=== PATIENT | female | born 1960 | race Caucasian/White ===

== ENCOUNTER 2017-10-07 08:47 | Outpatient (CLI) | payer MEDICARE, OTHER ==
[2016-09-16 23:07] VITALS: BP 118/68
[2017-10-07] MEDS ORDERED: ALBUTEROL SULFATE 2.5 MG/3 ML AMPUL.NEB NEB ONE (09:00)
== END 2017-10-07 08:50 ==
LOC: RT 08:47
PROVIDERS: ATTEND Family Medicine
DX: J44.9 Chronic obstructive pulmonary disease, unspecified (principal)
CPT/HCPCS: 94060

== ENCOUNTER 2017-11-17 15:28 | Emergency (ER) | payer MEDICARE, OTHER ==
--- NOTE | 2017-11-17 15:39 | ED Physician Documentation ---
General Adult - HISTORIAN Historian: patient - HPI Stated Complaint: chronic neck pain Chief Complaint: Neck Pain Onset: other (years ) Timing: still present, pain intermittent Severity: moderate Further Comments: yes (She states she has a pain management appt on 11/26/17. She did take her hydrocodone this am but feels she might be "getting immunue" to the med. She has pain on the right lateral side that is "like a muscle cramp " denies any new injury She has no other complaints) Last known Well Code/Unknown Code: Unknown - ROS CONST: no problems EYES/ENT: none MS/SKIN/LYMPH: none NEURO/PSYCH: denies: headache - PAST HX Past History: asthma Surgeries/Procedures: none Immunizations: referred to PCP Allergies/Adverse Reactions: Allergies Allergy/AdvReac Type Severity Reaction Status Date / Time No Known Allergies Allergy Verified 07/18/16 08:27 - SOCIAL HX Smoking History: cigarettes Alcohol Use: none Drug Use: none - FAMILY HX Family History: No - VITAL SIGNS Vital Signs: Vital Signs Temp Pulse Resp BP Pulse Ox 118/68 09/16/16 23:05 - REVIEWED ASSESSMENTS Nursing Assessment Reviewed: Yes Vitals Reviewed: Yes General Adult Physical Exam - PHYSICAL EXAM GENERAL APPEARANCE: mild distress EENT: eye inspection normal CVS: reg rate & rhythm, heart sounds normal, equal pulses ABDOMEN: soft SKIN: warm/dry, normal color EXTREMITIES: non-tender, other (tenderness on right lateral side. No obvious abnormalities. ROM is normal she complains of pain with left lateral rotation. ) NEURO: oriented X3, CN's nml as tested, motor nml, sensation nml, mood/affect nml Discharge Clincal Impression: Neck pain Referrals: Yousuf Louie MD [Primary Care Provider] - 2 Days Comments: Ice/heat continue pain meds at home for pain Cyclobenzaprine for pain as prescribed Call Pain management in am Condition: Stable Disposition: HOME, SELF-CARE Decision to Admit: NO Date of Decison to Admit: 11/17/17 Decision Time: 15:45
[2017-11-17 15:48] VITALS: BP 116/73
== END 2017-11-17 15:50 | disposition home or self-care (01) ==
LOC: ED 15:28
DX: M54.2 Cervicalgia (principal)
CPT/HCPCS: 99282

== ENCOUNTER 2017-12-19 12:00 | Emergency (ER) | payer MEDICARE, OTHER ==
--- NOTE | 2017-12-19 12:43 | ED Physician Documentation ---
Upper Respiratory Symptoms - HISTORIAN Historian: patient - HPI Stated Complaint: cough/fever Chief Complaint: Cough/ Upper Respiratory Additional Information: started 2 days ago, sore throat, more than normal cough, non-productive, slight fever, not eating, not smoking. Dr Louie is taking nyquil Onset: days ago Duration: constant Context: denies: recent foreign travel, insect bite(s) Severity: mild Associated Symptoms: fever, chills, sore throat Worsened by Deep Breath: No Further Comments: no - ROS CONST/EYES: denies: weakness CVS/RESP: none LYMPH: denies: leg swelling GI/: none, diarrhea NEURO/PSYCH: denies: fainting, dizziness MS/SKIN: denies: joint pain, muscle aches - PAST HX Lung Disease: COPD PE Risk Factors: none Surgeries/Procedures: hysterectomy Allergies/Adverse Reactions: Allergies Allergy/AdvReac Type Severity Reaction Status Date / Time No Known Allergies Allergy Verified 12/19/17 12:18 - SOCIAL HX Smoking History: cigarettes, greater than 1 pack/day Alcohol Use: none Drug Use: none - FAMILY HX Family History: none - VITAL SIGNS Vital Signs: Vital Signs Temp Pulse Resp BP Pulse Ox 99 F 114 H 18 150/96 96 12/19/17 12:05 12/19/17 12:05 12/19/17 12:05 12/19/17 12:05 12/19/17 12:05 - REVIEWED ASSESSMENTS Nursing Assessment Reviewed: Yes Vitals Reviewed: Yes Progress - Results/Orders Results/Orders: spoke Dr Villareal, [facility] accepts transfer, orders recieved ED Results Lab/Radiology - Lab Results Lab Results: Lab Results 12/19/17 12/19/17 12/19/17 13:35 13:35 13:35 WBC RBC Hgb Hct MCV MCH MCHC RDW Plt Count Seg Neutrophils % Band Neutrophils % Lymphocytes % Monocytes % Plt Morphology Comment Macrocytosis RBC Morph Comment PT 11.2 Seconds Seconds (9.4-11.6) INR 1.07 (0.9-1.2) APTT 26.5 Seconds Seconds (24.5-32.8) Sodium 141 mmol/L mmol/L (136-145) Potassium 3.4 mmol/L L mmol/L (3.5-5.1) Chloride 97 mmol/L L mmol/L (98-107) Carbon Dioxide 28 mmol/L mmol/L (22-30) BUN 18 mg/dL H mg/dL (7-17) Creatinine 0.90 mg/dL mg/dL (0.52-1.04) Estimated Creat Clear 56 Est GFR ( Amer) > 60 (60 - ) Est GFR (Non-Af Amer) > 60 (60 - ) Glucose 101 mg/dL mg/dL (74-106) Calcium 9.5 mg/dL mg/dL (8.4-10.2) Total Bilirubin 0.7 mg/dL mg/dL (0.2-1.3) AST 68 U/L H U/L (15-46) ALT 36 U/L U/L (13-69) Alkaline Phosphatase 109 U/L U/L (38-126) Creatine Kinase 165 U/L H U/L (30-135) Troponin I < 0.03 ng/mL L ng/mL (0.03-0.06) Total Protein 7.1 g/dL g/dL (6.3-8.2) Albumin 4.1 g/dL g/dL (3.5-5.0) 12/19/17 13:35 WBC 19.20 K/ul H K/ul (4.00-12.00) RBC 4.16 M/ul M/ul (3.90-5.20) Hgb 14.0 g/dL g/dL (12.0-16.0) Hct 42.1 % % (34.5-46.5) MCV 101.0 fl H fl (80.0-100.0) MCH 33.7 pg pg (28.0-34.0) MCHC 33.4 g/dL g/dL (30.0-36.0) RDW 12.8 % % (11.3-14.3) Plt Count 256 K/mm3 K/mm3 (130-400) Seg Neutrophils % 76 % % (39-79) Band Neutrophils % 8 % % (0-12) Lymphocytes % 9 % L % (16-50) Monocytes % 7 % % (0-11) Plt Morphology Comment Normal (NORMAL) Macrocytosis 1+ H (NEGATIVE) RBC Morph Comment Abnormal H (NORMAL) PT INR APTT Sodium Potassium Chloride Carbon Dioxide BUN Creatinine Estimated Creat Clear Est GFR ( Amer) Est GFR (Non-Af Amer) Glucose Calcium Total Bilirubin AST ALT Alkaline Phosphatase Creatine Kinase Troponin I Total Protein Albumin - Radiology Radiology Impressions: Right LL pleural effusion - Orders Orders: ED Orders Category Date Time Status CHEST 2 VIEW [CHEST P.A.&LAT 2 VIEWS] [RAD] Stat Exams 12/19/17 Completed CBC/PLATELET/DIFF Routine Lab 12/19/17 13:35 Completed CMP Routine Lab 12/19/17 13:35 Completed CREATINE KINASE Routine Lab 12/19/17 13:35 Completed PT-INR Routine Lab 12/19/17 13:35 Completed PTT Routine Lab 12/19/17 13:35 Completed Rapid Strep [GRP A STREP SCREEN] Stat Lab 12/19/17 Ordered TROPONIN I (cTnI) Stat Lab 12/19/17 13:35 Completed EKG WITH COMPARISON Stat Ther 12/19/17 Ordered Upper Respiratory Symptoms - EXAM General Appearance: no acute distress, alert EENT: eyes nml inspection, nml ENT inspection, lids & conjunct. nml, nose nml, pharyngeal erythema (mild). No: rhinorrhea Neck: normal inspection, thyroid normal, supple. No: lymphadenopathy, stiff neck Respiratory: no resp. distress, breath sounds nml, no pain on inspiration, speaks full sentences. No: wheezes, rales, rhonchi Abdomen: non-tender CVS: reg rate & rhythm, heart sounds normal, equal pulses Skin: color nml, no rash Extremities: non-tender, normal range of motion, no evidence of injury, no edema Neuro/Psych: oriented x3, neuro intact, mood/affect nml Discharge Clincal Impression: COPD exacerbation, Elevated creatine kinase Pneumonia Qualifiers: Pneumonia type: due to unspecified organism Laterality: right Lung location: lower lobe of lung Qualified Code(s): J18.1 - Lobar pneumonia, unspecified organism Referrals: Yousuf Louie MD [Primary Care Provider] - 2 Days Condition: Stable Disposition: XFER SHT-TRM HOSP Decision to Admit: NO Date of Decison to Admit: 12/19/17 Decision Time: 15:14
--- NOTE | 2017-12-19 13:45 | Diagnostic Imaging Report ---
FERNANDA JOSUE [facility] [address] [facility] [address] [address] Report Submission Date: Dec 19, 2017 1:23:35 PM COLLECTION COORDINATOR Patient Study Name: MELISSA LOZOYA Date: Dec 19, 2017 1:05:29 PM COLLECTION COORDINATOR Modality Type: CR Gender: F Description: CHEST : 62 Institution: [facility] Physician: FERNANDA JOSUE 2 views of the chest History: COUGH, WEAKNESS X2 DAYS, COPD, HX OF SMOKING SINCE AGE 13 No comparison studies are available at the time of dictation Heart is normal in size. There is opacity at the right lung base which obscures the right hemidiaphragm, right costophrenic angle is blunted. No acute osseous pathology Impression: 1. Right basilar infiltrate/atelectasis with small right pleural effusion. Suggest followup to resolution Electronically signed on Dec 19, 2017 1:23:35 PM COLLECTION COORDINATOR by: Geovanna KIRAN
[2017-12-19 13:52] LABS: MEAN CORPUSCULAR HEMOGLOBIN 33.7 pg (28.0-34.0)
[2017-12-19 14:03] LABS: eGFR (African) > 60; eGFR (Non-African) > 60
[2017-12-19 14:25] LABS: MONOCYTES % 7 % (0-11); SEGMENTED NEUTROPHILS % 76 % (39-79)
[2017-12-19] MEDS ORDERED: PIPERACILLIN SODIUM/TAZOBACTAM 3.375 GM VIAL IV ONE (15:15)
[2017-12-19] MEDS: PIPERACILLIN SODIUM/TAZOBACTAM 3.375 GM VIAL IV SCH (15:26)
[2017-12-19] MEDS: VANCOMYCIN HCL 1 GM in 0.9 % SODIUM CHLORIDE 500 ML IV ONE (15:42)
[2017-12-19 16:09] VITALS: BP 123/90
== END 2017-12-19 16:07 | disposition short-term general hospital (02) ==
LOC: ED 12:00
DX: J44.1 Chronic obstructive pulmonary disease with (acute) exacerbation (principal); J18.1 Lobar pneumonia, unspecified organism; F17.210 Nicotine dependence, cigarettes, uncomplicated
CPT/HCPCS: 36415; 71020; 80053; 82550; 84484; 85025; 85610; 85730; 87040; 87070; 87880; 93005; J2543; J3370; J7060; 96365; 96366; 96375; 99284; S1016

== ENCOUNTER 2018-09-11 08:28 | Emergency (ER) | payer MEDICARE, OTHER ==
[2018-09-11] MEDS ORDERED: 0.9 % SODIUM CHLORIDE 1,000 ML IV ONE (09:05)
--- NOTE | 2018-09-11 09:09 | ED Physician Documentation ---
General Adult - HISTORIAN Historian: patient - HPI Stated Complaint: cough, GARNICA, neck pain, elbow pain Chief Complaint: Cough/ Upper Respiratory Additional Information: Intro self as [employer]. pt presents to the ED via POV with multiple complaints. Pt c/o productive cough x several days. pt is a heavy smoker with a Hx of COPD. Pt also complains of moderate neck pain and a headache. she reports chills, nausea. pt takes Hydrocodone and xanax for her anxiety and chronic neck pain. pt states she has these meds at home. pt denies current chest pain, dyspnea, syncope/near syncope, dizziness, visual disturbances, v/d, fever, rash, sick contacts, dysuria, trauma. melena or hematochezia, change in bowel or bladder function. pt reports depression and anxiety that are controlled. pt denies HI/SI. ROS Negative unless otherwise specified. Vitals reviewed. pt mildly tachycardic. Timing: worse Severity: moderate - ROS CONST: chills. denies: fever CVS/RESP: cough. denies: chest pain, shortness of breath MS/SKIN/LYMPH: none NEURO/PSYCH: headache - PAST HX Past History: COPD, other (MDD, anxiety, chronic neck pain, osteoporosis, ) Surgeries/Procedures: , hysterectomy Allergies/Adverse Reactions: Allergies Allergy/AdvReac Type Severity Reaction Status Date / Time azithromycin Allergy Intermediate Itching Verified 09/11/18 08:43 - SOCIAL HX Smoking History: greater than 1 pack/day Alcohol Use: none Drug Use: none - FAMILY HX Family History: Yes (HTN Cancer) - VITAL SIGNS Vital Signs: Vital Signs Temp Pulse Resp BP Pulse Ox 98.0 F 116 H 16 118/96 94 09/11/18 08:43 09/11/18 08:43 09/11/18 08:43 09/11/18 08:43 09/11/18 08:43 - REVIEWED ASSESSMENTS Nursing Assessment Reviewed: Yes Vitals Reviewed: Yes Progress - Progress Progress: 1020 pt reports improvement in symptoms and VSS. Verbalizes readiness for DC. ED Results Lab/Radiology - Radiology Radiology Impressions: Examination: PA and lateral chest. History: Evaluate lung gallardo. COUGH AND CHEST PAIN X2 DAYS, PT STATES SHE IS A SMOKER (Hx) Comparison exam: None provided. Findings: PA and lateral views of the chest demonstrates a normal cardiac and mediastinal silhouette. Right base blunting. Mild parenchymal haziness near the cardiac apex. Osseous structures are appropriate for age. Impression: Right base infiltrate/effusion. Possible mild infiltrate near the left base/cardiac apex. Electronically signed on Sep 11, 2018 9:34:37 AM CDT by: Dash Mobley General Adult Physical Exam - PHYSICAL EXAM GENERAL APPEARANCE: no distress EENT: eye inspection normal, ENT inspection normal, pharynx normal, no signs of dehydration, TM's nml NECK: normal inspection. No: lymphadenopathy RESPIRATORY: no resp distress, rhonchi CVS: reg rate & rhythm, heart sounds normal, equal pulses, no murmur, no gallop, tachycardia ABDOMEN: soft, no organomegaly, normal bowel sounds, no distension. No: tenderness BACK: normal inspection SKIN: warm/dry, normal color EXTREMITIES: non-tender, normal range of motion, no evidence of injury, no edema NEURO: oriented X3, CN's nml as tested, motor nml, sensation nml Discharge Clincal Impression: Community acquired pneumonia Qualifiers: Laterality: unspecified laterality Qualified Code(s): J18.9 - Pneumonia, unspecified organism Referrals: Yousuf Beard MD [Primary Care Provider] - 2 Days Additional Instructions: Doxycycline 100 mg twice a day for 10 days. Take with food Prednisone taper take per package instructions once daily. Rest Increase hydration follow up with dr beard next fri or . call [facility] for an appointment. Return or seek medical care if worsening symptoms: CHEST PAIN, SHORTNESS OF BREATH, UNCONTROLLABLE FEVER, DIZZINESS, CHANGE IN MENTAL STATUS OR ANY CONCERN. -UNDERSTAND THAT THIS IS AN EMERGENCY EVALUATION FOR YOUR COMPLAINT TODAY AND BY NATURE IS LIMITED AND NOT A SUBSTITUTE FOR ONGOING MEDICAL CARE AND THAT EVEN THOUGH TEST RESULTS AND TREATMENT PLAN WERE EXPLAINED THERE MAY BE A NEED FOR ADDITIONAL TESTING TO FULLY DETERMINE THE EXTENT OF YOUR ILLNESS/INJURY/OR CONCERN SO YOU SHOULD CONTACT AND OR ESTABLISH WITH A PRIMARY CARE PROVIDER (OR REFERRAL DOCTOR IF APPLICABLE) FOR AN APPOINTMENT SOON POSSIBLE. Condition: Good Disposition: 01 HOME, SELF-CARE Decision to Admit: NO Date of Decison to Admit: 09/11/18 Decision Time: 10:19
[2018-09-11] MEDS ORDERED: KETOROLAC TROMETHAMINE 30 MG/1ML VIAL IVP ONE (09:15)
[2018-09-11 09:30] LABS: MEAN CORPUSCULAR HEMOGLOBIN 34.3 pg (28.0-34.0)
[2018-09-11 09:42] LABS: eGFR (Non-African) > 60
[2018-09-11] MEDS ORDERED: cefTRIAXone SODIUM 1 GM VIAL ONE (10:08)
[2018-09-11] MEDS: cefTRIAXone SODIUM 1 GM in 0.9 % SODIUM CHLORIDE 50 ML IV ONE ×2 (10:10→10:30)
[2018-09-11 10:44] VITALS: BP 122/82
--- NOTE | 2018-09-11 14:58 | Diagnostic Imaging Report ---
LIZ STUBBS [facility] [address] [facility] [address] Report Submission Date: Sep 11, 2018 9:34:37 AM CDT Patient Study Name: MELISSA LOZOYA Date: Sep 11, 2018 9:09:04 AM CDT Modality Type: DX Gender: F Description: CHEST : 62 Institution: [facility] Physician: LIZ STUBBS Examination: PA and lateral chest. History: Evaluate lung gallardo. COUGH AND CHEST PAIN X2 DAYS, PT STATES SHE IS A SMOKER (Hx) Comparison exam: None provided. Findings: PA and lateral views of the chest demonstrates a normal cardiac and mediastinal silhouette. Right base blunting. Mild parenchymal haziness near the cardiac apex. Osseous structures are appropriate for age. Impression: Right base infiltrate/effusion. Possible mild infiltrate near the left base/cardiac apex. Electronically signed on Sep 11, 2018 9:34:37 AM CDT by: Dash KIRAN
== END 2018-09-11 10:30 | disposition home or self-care (01) ==
LOC: ED 08:28
DX: J18.9 Pneumonia, unspecified organism (principal)
CPT/HCPCS: 71046; 80053; 85027; 87400; J0696; J1885; J7030; 96365; 96368; 99284; S1016

== ENCOUNTER 2018-09-18 11:44 | Inpatient (IN) | payer MEDICARE ==
--- NOTE | 2018-09-18 12:59 | History and Physical Report ---
History of Present Illnes - History of Present Illness Reason for Visit: Left lower lobe pneumonia History of Present Illness: This is a 57 year old female who was seen in the clinic today for continued shortness of breath, wheezing and weakness. She was seen in the ER on the and was noted to have a LLL pneumonia with a question of a RLLL also. She was treated with doxycycline and prednisone and nebulizer treatments as an outpatient, but despite this she has continued to be weak, chilling and coughing. She continues to smoke, but thinks she may have cut down a little. - Past Medical History Pulmonary: COPD Psych: Depression Musculoskeletal: Other (DJD, cervical spine) - Past Surgical History Past Surgical History: Hysterectomy, Hernia Repair (Umbilical) - Past Social History Smoke: 2 packs per day Alcohol: None Drugs: None Lives: With Family Domestic Violence: Negative - Health Maintenance Health Maintenance: denies: Cholesterol Influenza Vaccine: Current for this Influenza Season Pneumonia Vaccine: Yes Resuscitation Status: Resusciation Status Resuscitation Status Full Code - Unable to Obtain History Unable to Obtain: No Review of Systems - Review of Systems Constitutional: Chills, Sweats, Weakness, Malaise. negative: Fever Eyes: negative: pain ENT: negative: Ear Pain, Ear Discharge Respiratory: Cough, Shortness of Breath, SOB with Excertion, Wheezing. negative: Hemoptysis Cardiovascular: negative: Chest Pain Gastrointestinal: negative: Nausea, Vomiting Genitourinary: negative: Dysuria Musculoskeletal: Neck Pain (chronic) Skin: negative: Rash, Lesions Neurological: Weakness. negative: Numbness, Change in Speech - Medications/Allergies Allergies/Adverse Reactions: Allergies Allergy/AdvReac Type Severity Reaction Status Date / Time azithromycin Allergy Intermediate Itching Verified 09/11/18 08:43 Current Inpatient Medications: Current Inpatient Medications Albuterol/Ipratropium (Duoneb) 3 ml NEB Q6 ANNA Enoxaparin Sodium (Lovenox) 30 mg SQ QD ANNA Stop: 10/01/18 13:01 LEVOFLOXACIN 500MG/D5W 100ML (500 mg/ PREMIX BAG) 100 mls @ 100 mls/hr IV DAILY ANNA Stop: 10/02/18 12:59 Exam - Exam General: Alert, Oriented to Person, Mild distress (respiratory), Thin HEENT: Atraumatic, PERRLA, Edentulous Neck: No: Stridor Lungs: Respiratory Distress, Wheezes, Rhonchi, Stridor Cardiovascular: Regular rate Murmur: No: Systolic Murmur, Diastolic Murmur Abdomen: Normal bowel sounds, Soft, No tenderness Genitourinary: No: Other Male Genitourinary: No: Other Female Genitourinary: No: Other Integumentary: Other (actinic damage) Extremities: No clubbing, No cyanosis Neurological: Normal speech, Generalized Weakness Psych/Mental Status: Other (Anxious) Assessment/Plan - Assessment/Plan (1) Community acquired pneumonia Status: Acute Current Visit: No Qualifiers: Laterality: unspecified laterality Qualified Code(s): J18.9 - Pneumonia, unspecified organism Assessment: Failed outpatient treatment Plan: HFN IV steroids IV Levofloxacin Check CXR Supplemental O2 as needed (2) Neck pain Status: Acute Current Visit: Yes Assessment: hydrocodone as needed (on this as an outpatient) (3) Depression Status: Acute Current Visit: Yes Qualifiers: Depression Type: major depressive disorder Major depression recurrence: recurrent Active/Remission status: currently active Psychotic features: wit hout psychotic features Assessment: Citalopram 20mg po qd (4) COPD exacerbation Status: Acute Current Visit: No Assessment: IV steroids, HFN VTE Assessment - RISK FACTOR SCORE VTE RISK FACTOR SCORES: AGE 40-60 YEARS, ACUTE INFECTION OTHER THEN SEPSIS (On Lovenox)
[2018-09-18 13:14] LABS: MEAN CORPUSCULAR HEMOGLOBIN 33.4 pg (28.0-34.0)
[2018-09-18 13:15] LABS: BASOPHILS % 0.6 (0.0-1.5); MONOCYTES % 6.4 % (0.0-11.0); NEUTROPHILS # 5.6 # k/uL (1.4-7.7)
[2018-09-18 13:45] LABS: eGFR (Non-African) > 60
--- NOTE | 2018-09-18 13:48 | Diagnostic Imaging Report ---
MICHAEL GAONA [facility] [address] [facility] [address] [address] Report Submission Date: Sep 18, 2018 1:46:27 PM CDT Patient Study Name: MELISSA LOZOYA Date: Sep 18, 2018 1:04:22 PM CDT Modality Type: DX Gender: F Description: CHEST : 62 Institution: [facility] Physician: MICHAEL GAONA PA and lateral chest History: Follow up pneumonia. Cough PA and lateral chest dated September 18, 2018 is compared with September 11, 2018 Heart size is normal. There is no left lung infiltrate. Only the patient's breast tissue shadow is noted on the PA radiograph at the left lung base. There is unchanged blunting of the right costophrenic angle which may represent a small right pleural effusion or mild right pleural thickening. Otherwise, the right lung is clear. The lungs are mildly hyperinflated. Impression: No left lung infiltrate. Mild hyperinflation. Unchanged mild blunting of the right costophrenic angle as described. Electronically signed on Sep 18, 2018 1:46:27 PM CDT by: Ladonna KIRAN
[2018-09-18 14:00] VITALS: BMI 16.5
[2018-09-18] MEDS: IPRATROPIUM/ALBUTEROL SULFATE 3 ML AMPUL.NEB NEB SCH ×2 (14:18→18:32)
[2018-09-18] MEDS ORDERED: LEVOFLOXACIN 500MG/D5W 100ML 100 ML IV ONE (14:57)
[2018-09-18] MEDS: HYDROcodone /APAP 5/325 1 EACH TABLET PO PRN (14:59)
[2018-09-18] MEDS: ENOXAPARIN SODIUM 30 MG/0.3 ML DISP.SYRIN SQ SCH (15:08)
[2018-09-18] MEDS: LEVOFLOXACIN 500MG/D5W 100ML 500 MG in PREMIX BAG 1 BAG IV SCH (16:19)
[2018-09-18] MEDS: ALPRAZOLAM 0.5 MG TABLET PO SCH (18:30)
[2018-09-19] MEDS: ALPRAZOLAM 0.5 MG TABLET PO SCH ×3 (00:15→12:01)
[2018-09-19] MEDS: HYDROcodone /APAP 5/325 1 EACH TABLET PO PRN (00:15)
[2018-09-19] MEDS: IPRATROPIUM/ALBUTEROL SULFATE 3 ML AMPUL.NEB NEB SCH ×3 (00:17→12:08)
[2018-09-19] MEDS ORDERED: LEVOFLOXACIN 500MG/D5W 100ML 100 ML IV ONE (08:40)
[2018-09-19] MEDS: LEVOFLOXACIN 500MG/D5W 100ML 500 MG in PREMIX BAG 1 BAG IV SCH (08:43)
[2018-09-19 11:54] VITALS: BP 120/74
[2018-09-19] MEDS: ENOXAPARIN SODIUM 30 MG/0.3 ML DISP.SYRIN SQ SCH (14:14)
--- NOTE | 2018-09-21 14:49 | Discharge Summary ---
DATE OF ADMISSION: September 18, 2018 DATE OF DISCHARGE: September 19, 2018 DIAGNOSES ON THIS HOSPITALIZATION: 1. Pneumonia. 2. Chronic obstructive pulmonary disease (COPD) exacerbation. SUMMARIZATION OF ADMISSION HISTORY AND PHYSICAL: This is a 57-year-old female who had been seen in the emergency room about a week or so before. She was noted to have a right lower lobe infiltrate and effusion. She was started on doxycycline and a steroid taper; however, she continued to worsen. She did also continue to smoke while she was at home. She returned to office with chills and increasing shortness of breath. HOSPITAL COURSE: She was admitted. I rechecked her chest x-ray. Her effusion remained, no clear infiltrate was seen however. Leukocytosis had improved and she was able to be on room air. So after an overnight stay with giving her IV steroids, as well as aggressive nebulizer treatments and starting her on oral Levaquin, she was discharged to home with continuation of all of her home medications with a steroid taper of 40 mg p.o. daily for 3 days; 30 mg p.o. daily for 3 days; 20 mg p.o. daily for 3 days; and then 10 mg p.o. daily for 3 days. Follow up with Dr. Louie next week. Levofloxacin 500 mg 1 p.o. daily x5 days and recommended smoking cessation. MAGNO
== END 2018-09-19 14:14 | disposition home or self-care (01) | DRG 192 ==
LOC: SOUTH 11:44
PROVIDERS: ADMIT Family Medicine; ATTEND Family Medicine
DX: J44.1 Chronic obstructive pulmonary disease with (acute) exacerbation (principal); R68.83 Chills (without fever); R53.1 Weakness; F32.9 Major depressive disorder, single episode, unspecified; F17.210 Nicotine dependence, cigarettes, uncomplicated
CPT/HCPCS: 36415; 71046; 80053; 85025; 87040; A9270; G0379; J1650; J1956; J2930; 96365; 96375; 99222; 99238; S1016

== ENCOUNTER 2018-09-30 13:45 | Inpatient (IN) | payer MEDICARE ==
[2018-09-30] MEDS ORDERED: IPRATROPIUM/ALBUTEROL SULFATE 3 ML AMPUL.NEB NEB STA (14:07)
[2018-09-30 14:19] LABS: BASOPHILS % 0.8 (0.0-1.5); EOSINOPHILS % 2.9 % (0.0-6.8); MEAN CORPUSCULAR HEMOGLOBIN 33.1 pg (28.0-34.0); NEUTROPHILS # 12.2 # k/uL (1.4-7.7)
[2018-09-30 14:36] LABS: eGFR (Non-African) > 60
[2018-09-30] MEDS ORDERED: 0.9 % SODIUM CHLORIDE 1,000 ML IV ONE (15:07)
[2018-09-30] MEDS ORDERED: VANCOMYCIN HCL 1 GM in 0.9 % SODIUM CHLORIDE 500 ML IV ONE (15:14)
--- NOTE | 2018-09-30 15:26 | ED Physician Documentation ---
Dyspnea - HISTORIAN Historian: patient - HPI Chief Complaint: Asthma Onset: days ago Duration: worse Initiating Event: upper respiratory illness, out of meds Further Comments: yes (57 year old female patient presents to emergency room with right lower chest wall pain; "lungs hurt", "I'm no better". Patient was seen in ER on 09/11 - discharged home with doxycycline and prednisone taper for pneumonia. Patient saw Dr Pal on 09/18 in office and was admitted with bilateral pneumonia. Discharged home 09/19/2018 with levaquin 500mg x 7 days and prednisone taper of 40mg po x 3 days, 30mg po x 3 days, 20mg po x 3 days, 10mg po x 3 days. Patient states "I did take it right". Patient does not know where her prednisone is or when her last dose was. Patient does not have electricity in her home, is heating the front room with a space heater and currently has the water shut off. Patient states she has not been eating, states her depression is worse. Denies suicidal thoughts or plan.) - ROS CONST: recent illness, weakness - PAST HX Lung Disease: COPD Other History: other (depression) Allergies/Adverse Reactions: Allergies Allergy/AdvReac Type Severity Reaction Status Date / Time azithromycin Allergy Intermediate Itching Verified 09/11/18 08:43 - SOCIAL HX Smoking History: cigarettes (2 ppd) - FAMILY HX Family History: denies: none - VITAL SIGNS Vital Signs: Vital Signs Temp Pulse Resp BP Pulse Ox 120/74 09/19/18 13:20 - REVIEWED ASSESSMENTS Nursing Assessment Reviewed: Yes Vitals Reviewed: Yes Progress - Progress Progress: [address] Louie. Patient with persistent right LL infiltrate, WBC 18.5 with Lactate 1.1. Will admit to acute status and CT chest. Will consult mental health social worker ED Results Lab/Radiology - Lab Results Lab Results: Lab Results 09/30/18 09/30/18 14:06 14:06 WBC 18.50 K/ul H K/ul (4.00-12.00) RBC 4.45 M/ul M/ul (3.90-5.20) Hgb 14.7 g/dL g/dL (12.0-16.0) Hct 44.9 % % (34.5-46.5) MCV 101.0 fl H fl (80.0-100.0) MCH 33.1 pg pg (28.0-34.0) MCHC 32.8 g/dL g/dL (30.0-36.0) RDW 11.3 % % (11.3-14.3) Plt Count 368 K/mm3 K/mm3 (130-400) Neut % (Auto) 66.0 % % (39.0-79.0) Lymph % (Auto) 25.3 % % (16.0-50.0) Fisher % (Auto) 5.0 % % (0.0-11.0) Eos % (Auto) 2.9 % % (0.0-6.8) Baso % (Auto) 0.8 (0.0-1.5) Neut # (Auto) 12.2 # k/uL H # k/uL (1.4-7.7) Lymph # (Auto) 4.7 # k/uL H # k/uL (0.6-4.0) Fisher # (Auto) 0.9 # k/uL # k/uL (0.0-0.9) Eos # (Auto) 0.5 # k/uL # k/uL (0.0-0.6) Baso # (Auto) 0.2 # k/uL # k/uL (0.0-0.5) Sodium 142 mmol/L mmol/L (136-145) Potassium 3.9 mmol/L mmol/L (3.5-5.1) Chloride 105 mmol/L mmol/L (98-107) Carbon Dioxide 29 mmol/L mmol/L (22-30) BUN 14 mg/dL mg/dL (7-17) Creatinine 0.60 mg/dL mg/dL (0.52-1.04) Est GFR ( Amer) > 60 (60 - ) Est GFR (Non-Af Amer) > 60 (60 - ) Glucose 69 mg/dL L mg/dL (74-106) Lactate 1.1 U/L U/L (0.7-2.1) Calcium 8.7 mg/dL mg/dL (8.4-10.2) Total Bilirubin 0.6 mg/dL mg/dL (0.2-1.3) AST 65 U/L H U/L (15-46) ALT 54 U/L U/L (13-69) Alkaline Phosphatase 120 U/L U/L (38-126) Total Protein 7.3 g/dL g/dL (6.3-8.2) Albumin 3.8 g/dL g/dL (3.5-5.0) - Orders Orders: ED Orders Category Date Time Status Continuous EKG monitoring Q30M Care 09/30/18 14:06 Active Continuous Pulse Oximetry Q30M Care 09/30/18 14:06 Active CHEST 2VIEW [RAD] Stat Exams 09/30/18 14:[address] CHEST W/ CONTRAST Stat Exams 09/30/18 Ordered BLOOD CULTURE Stat Lab 09/30/18 14:07 Received CBC/PLATELET/DIFF Stat Lab 09/30/18 14:06 Completed CMP Stat Lab 09/30/18 14:06 Completed INFLUENZA A&B Stat Lab 09/30/18 14:07 Ordered LACTATE Stat Lab 09/30/18 14:06 Completed 0.9 % Sodium Chloride [Normal Saline] 1,000 ml Med 09/30/18 15:07 Active IV NOW Ipratropium/Albuterol Sulfate [Duoneb] Med 09/30/18 14:07 Discontinued 3 ml NEB STAT STA Vancomycin HCl [Vancocin] 1 gm Med 09/30/18 15:14 Active 0.9 % Sodium Chloride [Normal Saline] 500 ml IV NOW Dyspnea Physical Exam - EXAM General Appearance: mild distress, other (flat affect; thin, frail patient) Respiratory: no pain on inspiration, speaks full sentences, decreased air movement (Right LL) CVS: reg. rate & rhythm, no murmur, no gallop, no friction rub, pulses full, pulses equal Abdomen: non-tender, no organomegaly, no distention, no ascites Skin: color nml, no rash, warm, nml palp., dry Extremities: non-tender, normal range of motion, no evidence of injury, no edema, J, PRIOR AUTHORIZATION NURSE Neuro/Psych: oriented x3, CN's nml as tested, motor nml, sensation nml, mood/affect nml, depressed mood/affect Discharge Clincal Impression: Right lower lobe pulmonary infiltrate, COPD with exacerbation, Unsatisfactory living conditions Leukocytosis Qualifiers: Leukocytosis type: other Qualified Code(s): D72.828 - Other elevated white blood cell count Condition: Stable Disposition: 09 ADMITTED INPATIENT Decision to Admit: [id number] Decision Time: 15:30
--- NOTE | 2018-09-30 15:59 | History and Physical Report ---
History of Present Illnes - History of Present Illness Reason for Visit: dyspnea History of Present Illness: Patient is a 57-year-old white female who was seen in the ED on September 11 for a left lower lobe pneumonia with developing right lower lobe pneumonia. Patient was started on doxycycline prednisone and nebulized treatments. Patient continues to have shortness of breath dyspnea. Was seen in the clinic on September 18. Patient was admitted to observation care for failed treatment of pneumonia as an outpatient and exacerbation of COPD. At that time patient was started on Levaquin IV steroids and high flow nebulization treatments. Patient was discharged the following day with a prednisone taper. Patient is not able to get the prednisone filled at an outpatient. Patient states that she did complete the course of antibiotic therapy. Patient presented to the ED again today complaining of shortness of breath dyspnea low-grade fever associated with chills at time. Patient does feel like she is gotten any better. Patient denies any swelling in her legs. Patient is not had a previous history of PE. Patient has been having some chest pain in the left anterior area. Patient denies any precipitating modify back to that she is aware. Patient denies any previous history of coronary artery disease. Patient continues to smoke. Chest x-ray in the ED shows her to have a right middle lobe infiltrate. CT scan was done and was consistent with a pneumonia. Patient WBC count was 18,000. Patient was subsequently admitted to acute care for IV antibiotic therapy, steroid therapy and hypo nebulization treatments. - Past Medical History Pulmonary: COPD Psych: Anxiety, Depression Musculoskeletal: Other (DJD, cervical spine) - Past Surgical History Past Surgical History: Hysterectomy, Hernia Repair (Umbilical) - Past Family History Father Family History: (49yo from [place]) - Past Social History Smoke: 2 packs per day Alcohol: None Drugs: None Lives: With Family Domestic Violence: Negative - Health Maintenance Health Maintenance: denies: Influenza Vaccine, Pneumococcal Vaccine Pneumonia Vaccine: No Resuscitation Status: Resusciation Status Resuscitation Status Full Code - Unable to Obtain History Unable to Obtain: No Review of Systems - Review of Systems Constitutional: Fever, Chills, Sweats, Weakness Eyes: negative: pain, vision change, conjunctivae inflammation ENT: Ear Pain Respiratory: Cough, Shortness of Breath, SOB with Excertion, Pleuritic Pain (left), Sputum (green/yellow). negative: Hemoptysis Cardiovascular: Chest Pain. negative: Palpitations Gastrointestinal: negative: Nausea, Vomiting, Abdominal Pain, Diarrhea, Constipation, Melena, Hematochezia Genitourinary: negative: Dysuria, Frequency, Incontinence Musculoskeletal: Back Pain Skin: negative: Rash, Lesions Neurological: Weakness. negative: Numbness, Incoordination - Medications/Allergies Allergies/Adverse Reactions: Allergies Allergy/AdvReac Type Severity Reaction Status Date / Time azithromycin Allergy Intermediate Itching Verified 09/11/18 08:43 Current Inpatient Medications: Current Inpatient Medications Albuterol/Ipratropium (Duoneb) 3 ml NEB Q6 ANNA Budesonide (Pulmicort) 0.5 mg NEB BID ANNA Sodium Chloride (Normal Saline) 1,000 mls @ 250 mls/hr IV NOW ONE Stop: 09/30/18 19:06 Vancomycin HCl 1 gm/ Sodium (Chloride) 500 mls @ 250 mls/hr IV NOW ONE Stop: 10/01/18 11:59 Exam - Exam General: Alert, Oriented to Person, Oriented to Place, Oriented to Time, Cooperative HEENT: Atraumatic, PERRLA, EOMI, Mouth Mucous membr. moist/Gruver, Nose Mucous membr. moist/Gruver Neck: Normal Range of Motion Lungs: Normal air movement, Speaks full Sentences, Wheezes (mild with forced expiration), Rales, Rhonchi (Right). No: Stridor Cardiovascular: Regular rate, Normal S1, Normal S2, No murmurs Abdomen: Normal bowel sounds, Soft, No tenderness, No hepatospenomegaly, No masses Integumentary: Normal, Gruver, Warm, Dry Extremities: No clubbing, No cyanosis, No edema, Normal pulses, No tenderness/swelling Neurological: Normal gait, Normal speech, Strength Equal Bilat, Normal tone, Sensation intact, Cranial nerves 3-12 NL, Reflexes 2+ Psych/Mental Status: Mental status NL, Mood NL, Appropriate Affect, Intact Judgment - Laboratory Results Laboratory Results: Laboratory Results 09/30/18 09/30/18 14:06 14:06 WBC 18.50 H RBC 4.45 Hgb 14.7 Hct 44.9 MCV 101.0 H MCH 33.1 MCHC 32.8 RDW 11.3 Plt Count 368 Neut % (Auto) 66.0 Lymph % (Auto) 25.3 Leake % (Auto) 5.0 Eos % (Auto) 2.9 Baso % (Auto) 0.8 Neut # (Auto) 12.2 H Lymph # (Auto) 4.7 H Leake # (Auto) 0.9 Eos # (Auto) 0.5 Baso # (Auto) 0.2 Sodium 142 Potassium 3.9 Chloride 105 Carbon Dioxide 29 BUN 14 Creatinine 0.60 Est GFR ( Amer) > 60 Est GFR (Non-Af Amer) > 60 Glucose 69 L Lactate 1.1 Calcium 8.7 Total Bilirubin 0.6 AST 65 H ALT 54 Alkaline Phosphatase 120 Total Protein 7.3 Albumin 3.8 Assessment/Plan - Assessment/Plan (1) Right lower lobe pulmonary infiltrate Status: Acute Assessment: Failed treatment as an outpatient. Will start vancomycin and doxycycline. Will get blood cultures. Supplemental oxygen as needed. (2) COPD with exacerbation Status: Acute (3) Depression Status: Acute Qualifiers: Depression Type: major depressive disorder Major depression recurrence: recurrent Active/Remission status: currently active Psychotic features: without psychotic features Narrative Support Text: Patient is having difficulties with her daughter at this time. Patient is had her electricity and water turned off. VTE Assessment - RISK FACTOR SCORE VTE RISK FACTOR SCORES: AGE 40-60 YEARS, ACUTE RESPIRATORY FAILURE/SEVERE COPD, ANTICIPATED BED CONFINEMENT OR IMMOBILIZATION > 24 HOURS - RISK VTE HIGH RISK: SCORE OF 3-4 (RISK PROXIMAL DVT 4-8%) PROPHYLAXIS NEEDED
--- NOTE | 2018-09-30 17:42 | Diagnostic Imaging Report ---
MELVINA ALCOCER (ASSET PROTECTION DETECTIVE) - ER [facility] [address] [facility] [address] [place], [place]. [address] Report Submission Date: Sep 30, 2018 5:24:03 PM DIRECTOR STRATEGIC PLANNING Patient Study Name: MELISSA LOZOYA Date: Sep 30, 2018 4:46:12 PM DIRECTOR STRATEGIC PLANNING Modality Type: CT\SR Gender: F Description: CT CHEST W/ CONTRAST : 62 Institution: [facility] Physician: MELVINA ALCOCER (SONNY) - ER CT chest with contrast History: SOA X2 WEEKS, WORSE IN THE LAST FEW DAYS. RLL INFILTRATE VS MASS Technique: Transaxial computed tomography images of the chest were obtained following the uneventful administration contrast according to CT protocol. Coronal and sagittal images were obtained as part of the examination. Findings: The heart size is normal. The vascular structures are normal appearance. No pulmonary embolism is seen. There is atherosclerosis of the aorta. There is emphysematous changes present within the lungs. Focal area of infiltrate is seen within the right middle lobe there is also minimal discoid right basilar atelectasis present. There is no pleural effusion or pneumothorax present. There is no adenopathy identified. Limited views of the upper abdomen demonstrate mild hepatic steatosis. The osseous structures are normal. Impression: 1. Mild right middle lobe infiltrate and minimal right basilar dependent atelectasis. 2. Emphysematous change. 3. No pleural effusion or pneumothorax. Electronically signed on Sep 30, 2018 5:24:03 PM DIRECTOR STRATEGIC PLANNING by: Jermaine KIRAN
--- NOTE | 2018-09-30 17:44 | Diagnostic Imaging Report ---
MELVINA ALCOCER (AGRICULTURE INSPECTOR) - ER [facility] [address] [facility] [address] Report Submission Date: Sep 30, 2018 2:48:11 PM VISUAL EFFECTS ARTIST Patient Study Name: MELISSA LOZOYA Date: Sep 30, 2018 2:08:36 PM VISUAL EFFECTS ARTIST Modality Type: DX Gender: F Description: CHEST : 62 Institution: [facility] Physician: MELVINA ALCOCER (AGRICULTURE INSPECTOR) - ER Examination: PA and lateral chest. History: Evaluate lung gallardo. PT STATES CHEST PAINS X 2 WEEKS. PT STATES SHE HAD PNEUMONIA X 2 WEEKS AGO. PT HAS BEEN A SMOKER X 40 YEARS. (Hx) Comparison exam: To September 2018 Findings: PA and lateral views of the chest demonstrates a normal cardiac and mediastinal silhouette. Right base blunting. Left hemithorax without acute appearing process. Osseous structures are appropriate for age. Impression: Stable right base infiltrate/effusion. No acute appearing left hemithorax infiltrate/effusion. Electronically signed on Sep 30, 2018 2:48:11 PM VISUAL EFFECTS ARTIST by: Dash KIRAN
[2018-09-30] MEDS ORDERED: ENOXAPARIN SODIUM 30 MG/0.3 ML DISP.SYRIN SQ SCH (18:00)
[2018-09-30] MEDS: IPRATROPIUM/ALBUTEROL SULFATE 3 ML AMPUL.NEB NEB SCH (18:13)
[2018-09-30] MEDS: VANCOMYCIN PHARMACY TO DOSE IV SCH (18:18)
[2018-09-30 18:35] VITALS: BMI 16.0
[2018-09-30] MEDS ORDERED: AZITHROMYCIN 500 MG in 0.9 % SODIUM CHLORIDE 250 ML IV SCH (19:00)
[2018-09-30] MEDS ORDERED: VANCOMYCIN HCL 1 GM in 0.9 % SODIUM CHLORIDE 250 ML IV ONE (19:00)
[2018-09-30] MEDS: BUSPIRONE HCL 5 MG TABLET PO SCH (19:42)
[2018-09-30] MEDS: HYDROcodone /APAP 5/325 1 EACH TABLET PO SCH (19:43)
[2018-09-30] MEDS: BUDESONIDE 0.5MG/2ML AMPUL.NEB NEB SCH (21:10)
[2018-09-30] MEDS: ALPRAZOLAM 0.5 MG TABLET PO SCH (21:14)
[2018-09-30] MEDS: DOXYCYCLINE MONOHYDRATE 100 MG CAPSULE PO SCH (21:19)
[2018-10-01] MEDS: IPRATROPIUM/ALBUTEROL SULFATE 3 ML AMPUL.NEB NEB SCH ×3 (00:28→11:28)
[2018-10-01] MEDS: ALPRAZOLAM 0.5 MG TABLET PO SCH ×4 (00:29→11:04)
[2018-10-01] MEDS ORDERED: SODIUM CHLORIDE 0.9% IV SCH (06:00)
[2018-10-01] MEDS ORDERED: VANCOMYCIN HCL IV SCH (06:00)
[2018-10-01 06:18] LABS: MEAN CORPUSCULAR HEMOGLOBIN 33.6 pg (28.0-34.0)
[2018-10-01 06:19] LABS: BASOPHILS % 0.6 (0.0-1.5); EOSINOPHILS % 3.2 % (0.0-6.8); MONOCYTES % 4.8 % (0.0-11.0); NEUTROPHILS # 17.1 # k/uL (1.4-7.7)
[2018-10-01 06:38] LABS: eGFR (Non-African) > 60
[2018-10-01] MEDS: HYDROcodone /APAP 5/325 1 EACH TABLET PO SCH (08:44)
[2018-10-01] MEDS: BUDESONIDE 0.5MG/2ML AMPUL.NEB NEB SCH (08:45)
[2018-10-01] MEDS: BUSPIRONE HCL 5 MG TABLET PO SCH (08:45)
[2018-10-01] MEDS: DOXYCYCLINE MONOHYDRATE 100 MG CAPSULE PO SCH (08:48)
[2018-10-01] MEDS: VANCOMYCIN PHARMACY TO DOSE IV SCH (09:48)
[2018-10-01] MEDS ORDERED: VANCOMYCIN HCL 1 GM in 0.9 % SODIUM CHLORIDE 500 ML IV ONE (10:00)
[2018-10-01 17:01] VITALS: BP 110/74
--- NOTE | 2018-11-17 21:16 | Discharge Summary ---
Discharge Summary - Discharge Sumary History of Present Illness: Patient is a 57-year-old white female who was seen in the ED on September 11 for a left lower lobe pneumonia with developing right lower lobe pneumonia. Patient was started on doxycycline prednisone and nebulized treatments. Patient continues to have shortness of breath dyspnea. Was seen in the clinic on September 18. Patient was admitted to [facility] care for failed treatment of pneumonia as an outpatient and exacerbation of COPD. At that time patient was started on Levaquin IV steroids and high flow nebulization treatments. Patient was discharged the following day with a prednisone taper. Patient is not able to get the prednisone filled at an outpatient. Patient states that she did complete the course of antibiotic therapy. Patient presented to the ED again today complaining of shortness of breath dyspnea low-grade fever associated with chills at time. Patient does feel like she is gotten any better. Patient denies any swelling in her legs. Patient is not had a previous history of PE. Patient has been having some chest pain in the left anterior area. Patient denies any precipitating modify back to that she is aware. Patient denies any previous history of coronary artery disease. Patient continues to smoke. Chest x-ray in the ED shows her to have a right middle lobe infiltrate. CT scan was done and was consistent with a pneumonia. Patient WBC count was 18,000. Patient was subsequently admitted to acute care for IV antibiotic therapy, steroid therapy and hypo nebulization treatments. Home Medications: Ambulatory Orders Medication Instructions Recorded Cefdinir 300 mg PO BID #14 capsule 10/01/18 predniSONE [Yarelis] 5 mg PO DIRECTED #72 tablet. 10/01/18 Allergies/Adverse Reactions: Allergies Allergy/AdvReac Type Severity Reaction Status Date / Time azithromycin Allergy Intermediate Itching Verified 09/11/18 08:43 Discharge Summary: Patient was admitted to the hospital bundle vancomycin on doxycycline for antibiotic therapy for her pneumonia. Patient was continued on the budesonide nebulized treatments as well as duonebs. Patient breathing status did improve. Patient was able to maintain her SaO2 at 95% on room air. Patient at the time to discharge stated that she would filaments better. Patient did not want to wait for the physician to discharge her. Patient subsequently left AMA. - Final Diagnosis (1) Right lower lobe pulmonary infiltrate Problems: improved (2) COPD with exacerbation Problems: improved (3) Depression Problems: stable
== END 2018-10-01 16:55 | disposition left against medical advice (07) | DRG 195 ==
LOC: ED 13:45 → SOUTH 15:16
PROVIDERS: ADMIT Family Medicine; ATTEND Family Medicine
DX: J18.1 Lobar pneumonia, unspecified organism (principal); J44.9 Chronic obstructive pulmonary disease, unspecified; D72.828 Other elevated white blood cell count; R50.9 Fever, unspecified; F32.9 Major depressive disorder, single episode, unspecified
CPT/HCPCS: 71046; 71260; 80053; 83605; 85025; 87040; 87400; A9270; J1650; J3370; J7030; J7050; J7060; J7626; Q9967; 99222; 99238; 99283; S1016

== ENCOUNTER 2019-10-04 10:19 | Outpatient (CLI) | payer OTHER ==
[2019-03-12 17:43] VITALS: BP 137/89
--- NOTE | 2019-10-04 16:58 | Diagnostic Imaging Report ---
PATIENT MR#: [id number] PATIENT PATIENT NAME: MELISSA LOZOYA DATE OF : 1960 REFERRING PHYSICIAN: Keyanna Traylor EXAM DATE: 10/04/2019 ACCESSION NUMBER: [id number] EXAM DESCRIPTION: C SPINE 4 VIEWS OR MORE HISTORY: CERVICALGIA, CERVICAL RADICULITIS, NECK PAIN X 5 YRS. COMPARISON: No relevant comparison is available at the time of interpretation. C-SPINE XRAY, 8 views including obliques and flexion-extension: Vertebral bodies: No compression deformities. The dens is intact and the lateral masses are symmetric . Disc spaces: Normal height. Alignment: Normal cervical lordosis. Minimal grade 1 anterolisthesis of C5 over C6 with flexion. Neural foramina: Left neural foraminal narrowing at C3-4 and C5-6 on the basis of uncovertebral osteo phytes and facet arthrosis. Right neural foraminal narrowing at C4-5 on the basis of facet arthrosis. IMPRESSION: 1. Minimal grade 1 anterolisthesis of C5 over C6 with flexion, likely on the basis of facet arthrosis . 2. Left neural foraminal narrowing at C3-4 and C5-6 on the basis of uncovertebral osteophytes and fac et arthrosis. 3. Right neural foraminal narrowing at C4-5 on the basis of facet arthrosis. Read by: Dr. Nawaf Perez Transcribed by: Nawaf Perez Transcribed Date: 10/04/2019 4:57:49 PM Electronically signed by: Dr. Nawaf Perez Date signed: 10/04/2019 4:58:22 PM
--- NOTE | 2019-10-05 14:51 | OP Clinic Progress Note ---
DATE OF VISIT: 10/04/2019 CHIEF COMPLAINT: Neck pain. HISTORY OF PRESENT ILLNESS: Geneva is a 58-year-old female patient here for initial evaluation of her neck pain. Her neck pain has been present for approximately five years and progressively worsening. She has had no known history of an injury or incident that started her neck pain. Her pain is described as constant, aching, sharp and shooting at times. The pain radiates up into her head and down bilateral periscapular areas. She has numbness and tingling intermittently in bilateral trapezius areas and also in bilateral hands. Her left-hand symptoms are worse than her right. The patient does complain of bilateral upper extremity weakness, stating that she cannot lift things that she normally would be able to and complains of dropping things. She denies any urinary incontinence, bowel incontinence, saddle anesthesia or difficulty with walking. Her pain is worse with lifting and doing chores such as dishes. Her pain is better with rest, warm packs and hot baths. She tells me that 70% of her symptoms are in her hands while 30% is localized to her neck. The patient has not had any formal physical therapy in the last year, however, has continued to try to do daily cervical range of motion exercises. The patient has never had post acute care nurse practitioner. She tells me that she was seeing Dr. Gilbert at [facility] over the last five years and had multiple injections that are described like epidural steroid injections. Her last injection was approximately a year ago as the patient stopped going because the injections quit working. The patient was prescribed diclofenac and meloxicam by her PCP for her neck pain, however, she stopped both of these related to GI upset. PAST MEDICAL HISTORY: Includes anxiety, arthritis, back pain, neck pain, COPD, depression, joint pains, history of pneumonia last episode last year. PAST SURGICAL HISTORY: Includes a hysterectomy in 1981 and a hernia repair in 2011. FAMILY HISTORY: Includes mother with cancer and hypertension. Father with liver disease and maternal grandmother with cancer as well. SOCIAL HISTORY: Marital status is single. Occupation stays at home. Number of pregnancies is two, live births two, miscarriages/abortions is 0. Tobacco use is current, one pack per day x40 years. DRUG ALLERGIES: No known drug allergies CURRENT MEDICATIONS: The only medication the patient is taking is alprazolam 0.25 mg one half to one p.o. daily. REVIEW OF SYSTEMS: A complete 14-point review of systems was completed and positive for fatigue, weakness, weight loss, decreased appetite, ringing in ears, anxiety, depression, headaches, arm weakness, and sensitivity of hands as well as neck pain and joint pains. OBJECTIVE: General: This is a thin female patient presenting in no acute distress. Vital Signs: The patient is 5 feet 3 inches tall, weighs 103 pounds, temperature is 99.7, pulse is 75, respiratory rate is 18, blood pressure 98/66 with an SaO2 of 98% on room air. She is rating her pain a 10/10. HEENT: She is normocephalic and atraumatic. Sclerae clear. Pupils are equal and round without miosis. Trachea is midline. There is no lymphadenopathy or thyromegaly on palpation. CV: Normal S1, S2. Regular rate and rhythm. No gallops, rubs, or murmurs. Pulmonary: Nonlabored respirations at rest. Lungs are clear to auscultation throughout, diminished in posterior bases. GI: Abdomen is soft, round, nondistended and nontender. Bowel sounds present in all four quadrants. : Deferred. Musculoskeletal: The patient is tender to palpation about the C4-C5, C5-C6 and C6-C7 levels. She is mildly tender over the C2-C3, C3-C4 levels. No muscle spasms noted on today's exam. The patient has limited cervical flexion and extension with end range pain. Right lateral bending is full. Left lateral bending is restricted. Right rotation is slightly decreased while right lateral bending is full. On axial loading the patient does have left neck pain only without radicular symptoms. Upper extremity strength is equal and strong bilaterally, all areas graded 5/5 in elbow flexion, elbow extension, wrist flexion, wrist extension, finger abduction, finger adduction. Hand process checker are equal and strong bilaterally. Deep tendon reflexes are 2+ bilateral upper extremities. Gait is steady. Station is normal. Neurologic: Cranial nerves II through XII are grossly intact. Left upper extremity has decreased sensation throughout compared to the right. IMAGING REVIEWED: The patient did have an MRI of the cervical spine without contrast at [facility] on 08/03/2019. At the C2-C3, there is left neural foraminal disc protrusion with smaller right sided disc protrusion. There is no neural canal stenosis with narrowing of the left neural foramen. C3-C4 left neural foraminal narrowing is seen with an uncovertebral spurring and disc protrusion. Diffuse disc bulge is present asymmetric to the left. The right neural foramen is patent with severe narrowing on the left. C4-C5 neural foramen is patent, although mildly narrowed. There is no central canal stenosis. Small left paracentral disc protrusion extends into the subarticular recess. C5-C6 diffuse circumferential bulge is seen with flattening of the cord. The neural foramina are patent. C6-C7, there is no neural canal or neural foraminal stenosis with diffuse degenerative disc bulge extending into the anterior neural canal with effacement of cord. At the C7-T1 there is no neural canal or neural foraminal stenosis. Impression: 1. Degenerative discs seen at all levels of the cervical spine with neural foraminal narrowing, left greater than right in the upper cervical spine at C2- C3, C3-C4. 2. Minimal anterolisthesis at C4 on C5 is present with left subarticular recess disc protrusion. 3. At the C5-C6 flattening of the cord with diffuse disc protrusion is present. ASSESSMENT: 1. Cervicalgia. 2. Cervical radiculitis. 3. Cervical DDD. 4. Cervical facet arthrosis. PLAN: 1. I have ordered a cervical spine x-ray series to include flexion, extension and odontoid views. 2. The patient is to continue her home exercise program. 3. The patients to get a disk of her most recent MRI at [facility] and bring it back to the clinic so that we can download and view it. 4. The patient is to follow up just as soon as she is able after obtaining the MRI disk. Keyanna Traylor, JAMAALurse Practitioner /[employer] [id number] eligio cc: [facility] Lou[facility]
== END 2019-10-04 11:19 | disposition home or self-care (01) ==
LOC: OUT 10:19
PROVIDERS: ATTEND Nurse Practitioner Adult Health
DX: M50.10 Cervical disc disorder with radiculopathy, unspecified cervical region (principal); M46.92 Unspecified inflammatory spondylopathy, cervical region
CPT/HCPCS: 72050; 99213

== ENCOUNTER 2019-10-12 14:40 | Outpatient (CLI) | payer OTHER ==
[2019-03-12 17:43] VITALS: BP 137/89
--- NOTE | 2019-10-27 08:10 | OP Clinic Progress Note ---
DATE OF VISIT: 10/12/2019 CHIEF COMPLAINT: Neck pain. HPI: Geneva is a 58-year-old female patient here for follow up evaluation of her neck pain. Her neck pain has been present for approximately five years and has progressively worsened. She has had no known injury or incident that started her neck pain. Her pain is described as constant, aching, sharp and shooting at times. She does have some radiation up into her head and down into the periscapular area. Intermittently she complains of some numbness and tingling in bilateral trapezius areas. The patient denies any urinary incontinence, bowel incontinence, saddle anesthesia or difficulty walking. Her pain is worse with lifting and doing chores such as dishes. Her pain is better with rest, warm packs and hot baths. Today she is telling me her pain is worse in her neck than her arms. I ordered an x-ray at last appointment and obtained her MRI report and asked her to bring the disk. I have reviewed those and will go over them with her today. IMAGING REVIEWED: On 10/04/2019 she had x-ray series including flexion and extension of her neck. Impression: 1. Minimal grade 1 anterolisthesis at C5 over C6 with flexion likely on the basis of facet arthrosis. 2. Left neural foraminal narrowing at the C3-4 and C5-6 on the basis of uncovertebral osteophytes and facet arthrosis. 3. Right neural foraminal narrowing at the C4-5 on the basis of facet arthrosis. I reviewed her MRI with her at last appointment and you can see that report is scanned into the system. I reviewed the disk today. PFSH: Reviewed and unchanged. REVIEW OF SYSTEMS: Reviewed and unchanged from 10/04/2019. PHYSICAL EXAMINATION: General: This is a thin female patient presenting in no acute distress. Vital Signs: Height is 5 foot 3 inches tall. Weight 101 pounds. Temperature 98.1. Pulse 73. Respiratory rate 18. Blood pressure 119/78. SaO2 97% on room air. Pain is rated 10/10 today. Psych: Alert and oriented x3. She is calm, pleasant and cooperative. HEENT: Normocephalic and atraumatic. Pupils are equal and round without miosis. Sclerae are clear. Musculoskeletal: The patient continues to have tenderness to palpation specifically over the left C2-3 and left C3-4 levels. Upper extremity strength remains equal and strong bilaterally all areas graded 5/5 in elbow flexion, elbow extension, wrist flexion, wrist extension, finger abduction and finger adduction. Neuro: Cranial nerves II-XII grossly intact. Left upper extremity has slightly decreased sensation throughout compared to right. ASSESSMENT: 1. Cervicalgia. 2. Cervical facet arthrosis. 3. Cervical radiculitis versus radiculopathy. 4. Cervical DDD. PLAN: 1. Today I have ordered the first set of left C2-3, left C3-[address] facet [address] injections [address] Carrillo. 2. I provided the patient a refill of her [place] 5/325 mg 1 p.o. b.i.d. p.r.n. neck pain, dispense #60 with no refills. 3. Patient is to follow up in 2-4 weeks after injection to semiconductor engineer efficacy and determine further plan of care. The patient verbalizes understanding and agrees to the current treatment plan. Sincerely, Keyanna Traylor NP Nurse Practitioner LETTY/eligio JOB#: [id number] cc: Yousuf Louie MD [facility]ITALAsad
== END 2019-10-12 15:40 ==
LOC: OUT 14:40
PROVIDERS: ATTEND Nurse Practitioner Adult Health
DX: M47.892 Other spondylosis, cervical region (principal); M50.30 Other cervical disc degeneration, unspecified cervical region
CPT/HCPCS: 99213